=== PATIENT | female | born 1950 | race Caucasian/White ===

== ENCOUNTER → 2016-12-19 | Outpatient (CLI) | payer BC ==
[~2016-12-19] MED LIST: ASPI81TA28 PO; ATV5X PO; CHOL2000 PO; LPT40 PO; MULTCAP98 PO
[2016-12-19 12:23] LABS: HEMATOCRIT 40.4 % (37-47); MEAN CELL VOLUME 90.6 fL (80-100); MEAN CORPUSCULAR HEMOGLOBIN 30.3 pg (25-34); MEAN CORPUSCULAR HGB CONC 33.4 g/dl (32-36); MEAN PLATELET VOLUME 11.8 fL (7.4-10.4); PLATELET COUNT 167 K/uL (130-400); RED BLOOD COUNT 4.46 M/uL (4.2-5.4); WHITE BLOOD COUNT 5.39 K/uL (4.8-10.8)
[2016-12-19 12:30] LABS: URINE APPEARANCE CLEAR (CLEAR); URINE BILIRUBIN NEG (NEG); URINE COLOR YELLOW; URINE EPITHELIAL CELL AUTO 0-5 /lpf (0-5); URINE NITRITE NEG (NEG); URINE PH 6.5 (4.5-7.5); URINE SPECIFIC GRAVITY 1.012 (1.000-1.030); UROBILINOGEN NEG (NEG); ZZUR CULT IF INDIC CLEAN CATCH NO
[2016-12-19 12:35] LABS: MANUAL MICROSCOPIC REQUIRED? NO; REVIEW REQ? NO
[2016-12-19 12:42] LABS: ALT/SGPT 14 U/L (12-78); BLOOD UREA NITROGEN 17 mg/dl (7-18); CALCIUM 9.4 mg/dl (8.5-10.1); CARBON DIOXIDE 28 mmol/L (21-32); CHLORIDE 102 mmol/L (98-107); CHOLESTEROL 243 mg/dl (0-200); CREATININE 0.86 mg/dl (0.60-1.20); GLUCOSE 90 mg/dl (70-99); MAGNESIUM 2.2 mg/dl (1.8-2.4); POTASSIUM 4.2 mmol/L (3.5-5.1); SODIUM 138 mmol/L (136-145); TRIGLYCERIDES 70 mg/dl (0-150); VERY LOW DENSITY LIPOPROT CALC 14 mg/dl
[2016-12-19 12:51] LABS: ALB/GLOB RATIO 1.3 (0.9-2); ALKALINE PHOSPHATASE 63 U/L (45-117); AST/SGOT 15 U/L (15-37); CHOLESTEROL/HDL RATIO 3.2; HDL CHOLESTEROL 75 mg/dl; LDL CHOLESTEROL CALCULATED 154 mg/dl
[2016-12-19 12:59] LABS: BASO % 0.7 %; BASO ABS # 0.04 K/uL (0-0.2); COMPLETE YES; EOS % 1.3 %; LYMPH % 55.7 %; MONO % 8.3 %
== END | disposition home or self-care (01) ==
LOC: C.LABBFT 07:42
PROVIDERS: ATTEND Internal Medicine
DX: Z13.6 Encounter for screening for cardiovascular disorders (principal); M85.80 Other specified disorders of bone density and structure, unspecified site; R25.2 Cramp and spasm

== ENCOUNTER → 2017-01-03 | Outpatient (CLI) | payer BC ==
[~2017-01-03] MED LIST changes: +OPTIRAY 320 IV PRN
--- NOTE | 2017-01-03 11:32 | DIAGNOSTIC IMAGING REPORT ---
NECK CTA HISTORY: Carotid artery stenosis 12/19/16 0748 CREAK 0.86 TECHNIQUE: Multiaxial CT images of the neck were performed following the intravenous administration of contrast to evaluate the major cervical vessels. Maximum intensity projection images were also obtained. All measurements were calculated based on NASCET criteria. COMPARISON STUDY: None. FINDINGS: The aortic arch and proximal great vessels are widely patent. There is no significant stenosis, occlusion, or dissection identified within the bilateral common carotid, internal carotid, or vertebral arteries. IMPRESSION: No significant stenosis, occlusion, or dissection identified within the carotid or vertebral arteries.. Minimal scattered atherosclerotic change Electronically signed by: Brandon Alicia M.D. 01/03/2017 11:30 AM Dictated Date/Time: 01/03/2017 11:26 AM
== END | disposition home or self-care (01) ==
LOC: C.CTS 10:44
PROVIDERS: ATTEND Internal Medicine
DX: I65.29 Occlusion and stenosis of unspecified carotid artery (principal)

== ENCOUNTER → 2017-01-23 | Outpatient (CLI) | payer BC ==
[~2017-01-23] MED LIST changes: -OPTIRAY 320 IV PRN
== END | disposition home or self-care (01) ==
LOC: C.MAMM 07:37
PROVIDERS: ATTEND Internal Medicine
DX: M85.89 Other specified disorders of bone density and structure, multiple sites (principal)

== ENCOUNTER → 2017-03-28 | Outpatient (CLI) | payer BC ==
--- NOTE | 2017-03-28 15:40 | MAMMOGRAPHY REPORT ---
BILATERAL DIGITAL SCREENING MAMMOGRAM WITH CAD: 03/28/2017 CLINICAL HISTORY: Routine screening. Patient has no complaints. TECHNIQUE: Current study was also evaluated with a Computer Aided Detection (CAD) system. Bilatera l CC and MLO views were obtained. COMPARISON: Comparison is made to exams dated: 03/27/2016 mammogram, 03/09/2015 mammogram, 03/08/2014 m ammogram, 03/05/2013 mammogram, 02/28/2012 mammogram, and 02/26/2011 mammogram - [facility] nt. BREAST COMPOSITION: There are scattered areas of fibroglandular density in both breasts. FINDINGS: No suspicious masses, calcifications, or areas of architectural distortion are noted in e ither breast. There has been no significant interval change compared to prior exams. IMPRESSION: ACR BI-RADS CATEGORY 1: NEGATIVE There is no mammographic evidence of malignancy. A 1 year screening mammogram is recommended. The p atient will receive written notification of the results. Approximately 10% of breast cancers are not detected with mammography. A negative mammographic repor t should not delay biopsy if a clinically suggestive mass is present. Arabella Lubin M.D. ah/:03/28/2017 11:03:04 Clinical Nurse Occupational Medicine: Lauren URBINA(Samantha)(M), [facility] letter sent: Normal 1/2 BI-RADS Code: ACR BI-RADS Category 1: Negative
== END | disposition home or self-care (01) ==
LOC: C.MAMM 09:51
PROVIDERS: ATTEND Obstetrics & Gynecology
DX: Z12.31 Encounter for screening mammogram for malignant neoplasm of breast (principal)

== ENCOUNTER 2017-03-29 20:08 | Emergency (ER) | payer BC ==
[~2017-03-29] VITALS: Ht 165.1 cm; Wt 72.0 kg
[2017-03-29 20:13] VITALS: TEMP 36.8; Ht 165.1 cm; Wt 72.0 kg
[2017-03-29] MEDS ORDERED: LPT40 PO (20:33)
[2017-03-29] MEDS ORDERED: ASPI81TA28 PO (20:33)
[2017-03-29] MEDS ORDERED: MULTCAP98 PO (20:33)
[2017-03-29] MEDS ORDERED: CHOL2000 PO (20:33)
[2017-03-29] MEDS ORDERED: ATV5X PO (20:33)
[2017-03-29] MEDS ORDERED: LIDO/EPINEPHRINE/SOD BICARB 20 ML VIAL INFIL ONE (20:45)
[2017-03-29 22:10] VITALS: BP 134/82; PULSE 73; O2SAT 99
--- NOTE | 2017-03-29 22:31 | EMERGENCY ROOM VISIT NOTE ---
ED Visit Note First contact with patient: 20:19 CHIEF COMPLAINT: Laceration to left temporal area 4 hours ago HISTORY OF PRESENT ILLNESS: Patient is a 66-year-old white female who presents to the emergency department for evaluation of a laceration to the left congregation. She was using a wood processor to split wood. A piece of was tossed out of the machine, and struck her in the left side of the head. She did not lose consciousness, but was slightly dazed initially. She sat down for a little bit , then was able to get herself into the house, where she sat in the recliner, rested, applied pressure and ice. After about an hour of sitting in a chair she got up and showered and 8, and then came to the emergency department for evaluation. She notes a mild generalized headache, that she rates a 5/10. She noted some discomfort at the site of the laceration when she was chewing dinner. She feels a little "fuzzy." She denies any vision changes, no nausea or vomiting. No neck pain or stiffness. No numbness, tingling or weakness into the extremities. No difficulty with balance, speech or coordination. Her states that she has been acting appropriately. She takes a baby aspirin daily. REVIEW OF SYSTEMS: Review of systems as per HPI. All other systems reviewed were negative. At least 6 systems reviewed. PMH: Electronic medical records are reviewed and summarized as above/below. See Problem List. Patient believes that her tetanus is up-to-date. SOCIAL HISTORY: Patient lives at home with her . She does not smoke. PHYSICAL EXAM: Vital Signs: Reviewed Nurse's notes. CONSTITUTIONAL: Patient is a pleasant, well-appearing 66-year-old white female who is awake and alert and in no acute distress. HEAD: 2 cm laceration over the left congregation area in the hairline, with surrounding hematoma. Area slightly tender to palpation. Scant oozing is noted. No depressed skull fractures appreciated. EENT: Pupils equal, round, reactive to light and accommodation. EOMs intact without nystagmus. Sclera are anicteric. Tympanic membranes intact, with normal landmarks. External canals are clear. No hemotympanum. No Alejo sign. Oral and nasopharynx are clear. Mucous membranes are moist. NEUROLOGICAL: Alert, oriented, and cooperative. Cranial nerves, sensation and strength grossly intact. Normal gait. EMERGENCY DEPARTMENT COURSE: The patient was seen and evaluated as above. Old records are reviewed. She was offered medication for discomfort, but declined. She has an isolated laceration to the left temporal area. With regards to the closed head injury, I did discuss neuro imaging with a CT scan, however the patient's injury occurred roughly 4 hours ago at this time, and she has been watched and observed by her family, and continues to have a benign neurologic exam. I do not suspect skull fracture or acute intracranial bleed and therefore did not feel that CT scan was indicated and the patient was in agreement. The wound was cleaned with saline and Betadine.. Sterile technique was used and the wound was anesthetized with 1% buffered lidocaine with epinephrine. The wound edges were then approximated with 5 interrupted 5-0 nylon sutures. Bacitracin was applied. Wound care and head injury instructions were outlined with the patient and her . She was discharged home in good condition. Problem List Medical Problems: (1) Contusion of foot Status: Resolved (2) Contusion of left foot Status: Resolved (3) Contusion of left foot Status: Resolved Current/Historical Medications Scheduled Aspirin (Aspirin Ec), 81 MG PO DAILY Atorvastatin (Atorvastatin Calcium), 40 MG PO DAILY Cholecalciferol (Vitamin D3), 4,000 INTER.UNIT PO DAILY Multiple Vitamins W/ Minerals (Icaps), 1 CAP PO DAILY Scheduled PRN Lorazepam (Lorazepam), 0.5 MG PO DAILY PRN for Anxiety Allergies Coded Allergies: No Known Allergies (Unverified Allergy, Unknown, 09/22/08) Vital Signs Date Time Temp Pulse Resp B/P Pulse Ox O2 Delivery O2 Flow Rate FiO2 03/29/17 22:10 73 20 134/82 99 Room Air 03/29/17 20:13 36.8 60 16 136/70 97 Departure Information Impression Primary Impression: Facial laceration Referrals Jordin Crowley M.D. (PCP) Patient Instructions My [facility] Additional Instructions Ibuprofen(Motrin, Advil) may be used for fever or pain. Use 600mg every six hours as needed. Take with food. Avoid using more than 2400mg in a 24 hour period. Do not use 2400mg per day for more than three consecutive days without physician direction. Prolonged inappropriate use can lead to stomach upset or ulcers. (AND/OR) Acetaminophen(Tylenol) may be used for fever or pain. Use 1000mg every six hours as needed. Avoid using more than 3000mg in a 24 hour period. Keep wound clean and dry. Do not allow any crusting or dried blood to accumulate on sutures. If this occurs, use a 1:1 solution of hydrogen peroxide/ water on a Q-tip to clean the wound. Use an antibiotic ointment for 3-4 days, then let wound dry. Suture removal in 10-12 days. Return sooner for any signs of infection (increasing redness, swelling, drainage). Ice and elevate for swelling and pain. Problems could arise over the next 24 to 48 hours. You should not be left alone and MUST go to the hospital immediately if you: -Have a headache that suddenly gets worse. -Are very drowsy or cannot be woken up from sleep. -Can't recognize people or places. -Have repeated vomiting. -Behave unusually, seemed confused, or start acting irritable. -Have a seizure (arms and legs start jerking uncontrollably). -Have weak or numb arms or legs. -Are unsteady on your feet -Experience slurred speech or difficulty speaking.
== END 2017-03-29 22:40 | disposition home or self-care (01) ==
LOC: C.EDB 20:09 → C.EDD 22:40
DX: S01.81XA Laceration without foreign body of other part of head, initial encounter (principal); W20.8XXA Other cause of strike by thrown, projected or falling object, initial encounter; Y93.89 Activity, other specified; Z79.82 Long term (current) use of aspirin; Z79.899 Other long term (current) drug therapy

== ENCOUNTER → 2017-04-11 | Outpatient (CLI) | payer BC | END | disposition home or self-care (01) | LOC: C.PAPS 15:38 | PROVIDERS: ATTEND Obstetrics & Gynecology | DX: Z01.419 Encounter for gynecological examination (general) (routine) without abnormal findings (principal); Z11.51 Encounter for screening for human papillomavirus (HPV) ==

== ENCOUNTER → 2017-04-26 | Outpatient (CLI) | payer BC ==
[2017-04-26 07:59] LABS: URINE APPEARANCE CLEAR (CLEAR); URINE BILIRUBIN NEG (NEG); URINE COLOR YELLOW; URINE EPITHELIAL CELL AUTO 0-5 /lpf (0-5); URINE NITRITE NEG (NEG); URINE PH 7.5 (4.5-7.5); URINE SPECIFIC GRAVITY 1.011 (1.000-1.030); UROBILINOGEN NEG (NEG); ZZUR CULT IF INDIC CLEAN CATCH NO
[2017-04-26 08:00] LABS: MANUAL MICROSCOPIC REQUIRED? NO; REVIEW REQ? NO
[2017-04-26 09:30] LABS: CHOLESTEROL/HDL RATIO 2.1
== END | disposition home or self-care (01) ==
LOC: C.LAB 07:10
PROVIDERS: ATTEND Internal Medicine
DX: E55.9 Vitamin D deficiency, unspecified (principal); R31.29 Other microscopic hematuria; E78.5 Hyperlipidemia, unspecified

== ENCOUNTER → 2018-04-02 | Outpatient (CLI) | payer BC ==
--- NOTE | 2018-04-03 07:48 | MAMMOGRAPHY REPORT ---
BILATERAL DIGITAL SCREENING MAMMOGRAM TOMOSYNTHESIS WITH CAD: 04/02/2018 CLINICAL HISTORY: Routine screening. TECHNIQUE: Breast tomosynthesis in addition to standard 2D mammography was performed. Current study was also evaluated with a Computer Aided Detection (CAD) system. COMPARISON: Comparison is made to exams dated: 03/28/2017 mammogram, 03/27/2016 mammogram, 03/09/2015 jessa mogram, 03/08/2014 mammogram, 03/05/2013 mammogram, and 02/28/2012 mammogram - [facility] er. BREAST COMPOSITION: There are scattered areas of fibroglandular density in both breasts. FINDINGS: No suspicious masses, calcifications, or areas of architectural distortion are noted in ei ther breast. There has been no significant interval change compared to prior exams. Bilateral benign -appearing calcifications are not significantly changed. IMPRESSION: ACR BI-RADS CATEGORY 2: BENIGN There is no mammographic evidence of malignancy. A 1 year screening mammogram is recommended. The pa tient will receive written notification of the results. Approximately 10% of breast cancers are not detected with mammography. A negative mammographic report should not delay biopsy if a clinically suggestive mass is present. Arabella Lubin M.D. ah/:04/02/2018 12:14:24 Veterinary Medicine Teacher: Lauren URBINA(R)(M), [facility] letter sent: Normal 1/2 BI-RADS Code: ACR BI-RADS Category 2: Benign
== END | disposition home or self-care (01) ==
LOC: C.MAMM 09:48
PROVIDERS: ATTEND Obstetrics & Gynecology
DX: Z12.31 Encounter for screening mammogram for malignant neoplasm of breast (principal)

== ENCOUNTER → 2018-07-10 | Outpatient (CLI) | payer BC ==
[2018-07-10 12:55] LABS: ALBUMIN 3.8 gm/dl (3.4-5.0); ALKALINE PHOSPHATASE 77 U/L (45-117); ALT/SGPT 28 U/L (12-78); AST/SGOT 21 U/L (15-37); BLOOD UREA NITROGEN 14 mg/dl (7-18); CALCIUM 9.3 mg/dl (8.5-10.1); CARBON DIOXIDE 30 mmol/L (21-32); CHOLESTEROL 165 mg/dl (0-200); GLUCOSE 95 mg/dl (70-99); LDL CHOLESTEROL CALCULATED 88 mg/dl; POTASSIUM 4.3 mmol/L (3.5-5.1); SODIUM 136 mmol/L (136-145); TOTAL PROTEIN 7.6 gm/dl (6.4-8.2)
== END | disposition home or self-care (01) ==
LOC: C.LABBFT 07:28
PROVIDERS: ATTEND Internal Medicine
DX: E78.5 Hyperlipidemia, unspecified (principal); E55.9 Vitamin D deficiency, unspecified